=== PATIENT | female | born 1985 | race Caucasian/White ===

== ENCOUNTER 2018-09-23 18:50 | Emergency (ER) | payer MEDICAID ==
[2018-09-23 18:57] VITALS: BMI 34.0
[2018-09-23] MEDS ORDERED: Sodium Chloride 0.9% 1,000 ML IV STA (19:47)
[2018-09-23] MEDS ORDERED: Sodium Chloride 0.9% 1,000 ML ONE (19:56)
[2018-09-23 19:59] LABS: VENOUS BLOOD GAS PCO2 48 mmHg (40-60); VENOUS BLOOD GAS PO2 33 mm/Hg (30-55); VENOUS BLOOD PH 7.36 (7.32-7.43)
[2018-09-23 20:08] LABS: BASO % 0.8 % (0.0-2.0); EOS # 0.1 K/uL (0.0-0.7); EOS % 2.5 % (0.0-4.0); LYMPH # 2.4 K/uL (1.0-4.3); LYMPH % 44.9 % (20.0-40.0); MEAN CELL VOLUME 98.9 fL (81.0-99.0); MEAN CORPUSCULAR HEMOGLOBIN 32.4 pg (27.0-31.0); MEAN CORPUSCULAR HGB CONC 32.7 g/dL (33.0-37.0); MEAN PLATELET VOLUME 10.5 fL (7.2-11.7); MONO # 0.6 K/uL (0.0-0.8); MONO % 12.1 % (0.0-10.0); NEUT # 2.1 K/uL (1.8-7.0); NEUT % 39.7 % (50.0-75.0); NRBC % 0.2 % (0.0-2.0); RBC 4.63 Mil/uL (3.80-5.20); RED CELL DISTRIBUTION WIDTH 13.9 % (11.5-14.5); WHITE BLOOD COUNT 5.3 K/uL (4.8-10.8)
--- NOTE | 2018-09-23 20:08 | C.PDOC ---
History Of Present Illness Patient is a 33 year old female who presents to the ED for evaluation of a 1 week history of sore throat, cough, body aches, and general weakness. Patient reports taking Nyquil and cough suppressants at home. She denies any fever, re cent travel, sick contacts, or dysuria. No PMD. Time Seen by Provider: 09/23/18 19:27 Chief Complaint (Nursing): Cough, Cold, Congestion History Per: Patient History/Exam Limitations: no limitations Onset/Duration Of Symptoms: Days (one week) Current Symptoms Are (Timing): Still Present Associated Symptoms: Sore Throat, Cough, Myalgias. denies: Fever Recent travel outside of the [place]: No Additional History Per: Patient Past Medical History Reviewed: Historical Data, Nursing Documentation, Vital Signs Vital Signs: Last Vital Signs Temp 99 F 09/23/18 18:57 Pulse 106 H 09/23/18 18:57 Resp 22 09/23/18 18:57 BP 139/96 H 09/23/18 18:57 Pulse Ox 98 09/23/18 18:57 - Medical History PMH: Anxiety Surgical History: No Surg Hx - [facility] Procedures LOW CERVICAL (07/17/14) Family History: States: Unknown Family Hx - Social History Hx Alcohol Use: No Hx Substance Use: No - Immunization History Hx Tetanus Toxoid Vaccination: No Hx Influenza Vaccination: No Hx Pneumococcal Vaccination: No Review Of Systems Except As Marked, All Systems Reviewed And Found Negative. Constitutional: Negative for: Fever Genitourinary: Negative for: Dysuria Physical Exam - Physical Exam Appears: No Acute Distress Skin: No Rash Head: Atraumatic, Normacephalic Eye(s): bilateral: PERRL Nose: Other (congestion) Neck: Supple Chest: No Tenderness Cardiovascular: Rhythm Irregular (tachycardic), Other Respiratory: Other (Clear to auscultation bilaterally.) Gastrointestinal/Abdominal: No Tenderness, No Distention Back: No CVA Tenderness Extremity: No Tenderness, No Swelling Neurological/Psych: Other (Alert, no focal deficit.) ED Course And Treatment - Laboratory Results Result Diagrams: 09/23/18 19:50 09/23/18 19:50 Lab Results: pO2 33 mm/Hg (30-55) 09/23/18 19:56 VBG pH 7.36 (7.32-7.43) 09/23/18 19:56 VBG pCO2 48 mmHg (40-60) 09/23/18 19:56 VBG HCO3 24.7 mmol/L 09/23/18 19:56 VBG Total CO2 28.6 mmol/L (22-28) H 09/23/18 19:56 VBG O2 Sat (Calc) 67.1 % (40-65) H 09/23/18 19:56 VBG Base Excess 1.0 mmol/L (0.0-2.0) 09/23/18 19:56 VBG Potassium 3.8 mmol/L (3.6-5.2) 09/23/18 19:56 Sodium 139.0 mmol/l (132-148) 09/23/18 19:56 Chloride 103.0 mmol/L (98-107) 09/23/18 19:56 Glucose 95 mg/dl (65-105) 09/23/18 19:56 Lactate 2.1 mmol/L (0.7-2.1) 09/23/18 19:56 O2 Sat by Pulse Oximetry: 98 Medical Decision Making Medical Decision Making: Plan: [facility] Labs CXR Urine Culture Serology Rapid Strep Serology Rapid FLu Urinalysis HCG Urinalysis Toradol 30mg IVP Zofran 8mg IVP IV Fluids Patient feels better. Vitals normal. Tamiflu, f/u clinic, return to ED for worsening pain, fever, vomiting, dyspnea, or any other problem. Disposition - Disposition Referrals: [facility] [Outside] Disposition: HOME/ ROUTINE Disposition Time: 21:33 Condition: GOOD Prescriptions: Oseltamivir Phosphate [Tamiflu] 1 cap PO BID #9 capsule Instructions: Influenza (ED) Forms: [facility] (Latvian), Work Excuse - Clinical Impression Clinical Impression: Influenza - Scribe Statement The provider has reviewed the documentation as recorded by the Scribe B All medical record entries made by the Scribe were at my direction and personally dictated by me. I have reviewed the chart and agree that the record accurately reflects my personal performance of the history, physical exam, medical decision making, and the department course for this patient. I have also personally directed, reviewed, and agree with the discharge instructions and disposition.delilah Berg
[2018-09-23 20:10] LABS: ALB/GLOB RATIO 1.3 (1.0-2.1); ALBUMIN 4.3 g/dL (3.5-5.0); ALT/SGPT 18 U/L (9-52); AST/SGOT 24 U/L (14-36); BLOOD UREA NITROGEN 12 mg/dL (7-17); GFR NON-AFRICAN AMERICAN > 60; LIPASE 54 U/L (23-300)
[2018-09-23 20:17] LABS: INFLUENZA A B POS FOR INFLUENZA B (NEGATIVE)
[2018-09-23 21:02] LABS: SQUAMOUS EPITHIAL 7 /hpf (0-5); URINE BILIRUBIN NEGATIVE (NEGATIVE); URINE BLOOD NEGATIVE (NEGATIVE); URINE CALCIUM OXALATE CRYSTALS FEW /hpf (<OCC); URINE CLARITY Hazy (Clear); URINE COLOR Yellow (YELLOW); URINE GLUCOSE (UA) NORMAL (Normal); URINE LEUKOCYTE ESTERASE NEG Leu/uL (Negative); URINE PROTEIN NEGATIVE (NEGATIVE); URINE UROBILINOGEN NORMAL mg/dL (0.2-1.0)
[2018-09-23 21:22] VITALS: BP 110/67; PULSE 66; RESP 18; TEMP 98.6
[2018-09-23 21:30] LABS: HCG,QUALITATIVE URINE NEGATIVE (NEGATIVE)
[2018-09-23 21:33] VITALS: O2SAT 98
--- NOTE | 2018-09-24 10:31 | RAD ---
Date of service: 09/23/2018 HISTORY: cough COMPARISON: No prior. TECHNIQUE: 1 view obtained. FINDINGS: LUNGS: No active pulmonary disease. PLEURA: No significant pleural effusion identified, no pneumothorax apparent. CARDIOVASCULAR: No aortic atherosclerotic calcification present. Normal cardiac size. No pulmonary vascular congestion. OSSEOUS STRUCTURES: No significant abnormalities. VISUALIZED UPPER ABDOMEN: Normal. OTHER FINDINGS: None. IMPRESSION: No active disease.
== END 2018-09-23 22:12 | disposition home or self-care (01) ==
LOC: C.ER 18:50
DX: J11.1 Influenza due to unidentified influenza virus with other respiratory manifestations (principal)
CPT/HCPCS: 71045; 80053; 81001; 82803; 83690; 84703; 85025; 87070; 87086; 87430; 87804; 96361; 96374; 96375; 99284; J1885; J2405; J7030